=== PATIENT | male | born 1980 | race American Indian/Alaskan Native ===

== ENCOUNTER 2021-04-08 05:59 | Emergency (ER) | payer SELFPAY ==
[2021-04-08 06:10] VITALS: BP 130/86
[2021-04-08] MEDS ORDERED: IBUPROFEN 800 MG TAB PO ONE (06:23)
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
== END 2021-04-08 07:26 | disposition home or self-care (01) ==
LOC: ED 05:59
DX: S29.012A Strain of muscle and tendon of back wall of thorax, initial encounter (principal); M54.2 Cervicalgia; Z79.899 Other long term (current) drug therapy; X58.XXXA Exposure to other specified factors, initial encounter; Y93.89 Activity, other specified; Y92.89 Other specified places as the place of occurrence of the external cause; Y99.8 Other external cause status
CPT/HCPCS: 72070; 99283